=== PATIENT | female | born 1955 | race Caucasian/White ===

== ENCOUNTER 2024-09-18 09:05 | Outpatient (CLI) | payer BC, SELFPAY ==
--- NOTE | 2024-09-18 09:16 | XR_ITS ---
WS: [id number] Lumbar spine, 3 views, 09/18/2024 Clinical Data: VERTEBROGENIC LOW BACK Comparison: Lumbar spine, 06/10/2018 Findings: There is loss of vertebral body height of all the lumbar vertebral bodies. Vertebral body L1 shows further loss of height as does L5 when compared to prior exam. Osteoporosis is present. There is facet joint arthritis at all levels. There is degenerative disc narrowing at all levels. The transverse processes and SI joints are normal. There is calcification in the wall of the abdominal aorta but there is no aneurysm. There is repair of an intertrochanteric hip fracture. XR/XR lumbar spine 2-3V* 25041 Impression: 1. Loss of vertebral body height of all the lumbar vertebral bodies with furthe r loss of height at L1 and L5. 2. Osteoporosis, facet joint arthritis and degenerative disc narrowing at all l evels.
== END 2024-09-18 09:06 | disposition home or self-care (01) ==
PROVIDERS: Family Provider Family Medicine; PCP Nurse Practitioner; Visit Provider Anesthesiology Pain Medicine
DX: M54.51 Vertebrogenic low back pain (principal); R93.7 Abnormal findings on diagnostic imaging of other parts of musculoskeletal system; M81.0 Age-related osteoporosis without current pathological fracture; M47.896 Other spondylosis, lumbar region; M51.369 Other intervertebral disc degeneration, lumbar region without mention of lumbar back pain or lower extremity pain; I70.0 Atherosclerosis of aorta; Z98.890 Other specified postprocedural states
CPT/HCPCS: 72100

== ENCOUNTER 2024-11-05 13:20 | Outpatient (CLI) | payer BC, SELFPAY ==
--- NOTE | 2024-11-05 13:24 | XR_ITS ---
WS: [id number] DEXA (DUAL ENERGY X-RAY ABSORPTIOMETRY) Bone mineral density was performed using a [employer] machine. HISTORY: OSTEOPOROSIS COMPARISON: None available. Lumbar spine BMD (L1-L4): 0.687 g/cm2 T score: -4.1 Z score: -2.1 Total hip BMD: Right: 0.574. T score: -3.4 Z score: -1.8 Left forearm BMD: 0.503 g/cm2. T score: -4.3 Z score: -2.6 10 year probability of a major osteoporotic fracture is 40%. XR/XR DEXA axial skeleton* 13999 IMPRESSION: OSTEOPOROSIS based upon the WHO classification for females.
== END 2024-11-05 13:21 | disposition home or self-care (01) ==
PROVIDERS: PCP Nurse Practitioner
DX: M81.0 Age-related osteoporosis without current pathological fracture (principal)
CPT/HCPCS: 77080